=== PATIENT | female | born 1975 | race Caucasian/White ===

== ENCOUNTER 2021-07-13 20:00 | Emergency (ER) | payer MEDICARE, SELFPAY ==
[2021-07-13 20:01] VITALS: BP 160/103; PULSE 115; RESP 18; TEMP 36.6; O2SAT 95; BMI 41.8
--- NOTE | 2021-07-13 20:32 | US_ITS ---
INDICATION: Two right leg bruises/ pain EXAMINATION: Ultrasound US Venous Duplex LE Unilat / Limited TECHNIQUE: Morton scale, pulse wave, and color flow Doppler imaging was performed of the lower extremity venous system. The right greater saphenous, common femoral, femoral, and popliteal veins were interrogated. Proximal posterior tibial and peroneal veins also interrogated with grayscale imaging. COMPARISON: None. FINDINGS: There is normal compression, augmentation, and signal throughout the visualized deep lower extremity veins. Contralateral left common femoral vein is also normal with symmetric waveforms. Area of medial distal thigh and calf reported bruising shows no soft tissue fluid collection or appreciable subcutaneous edema. US/Venous Duplex Imag/Limited/Uni IMPRESSION: No sonographic evidence of deep venous thrombosis. Electronically Signed: Omar Díaz DO at 22:01 EDT Tel , Service support ,
--- NOTE | 2021-07-13 20:33 | EX.ED.DYSGE1 ---
HPI History of Present Illness Chief Complaint: Other, Pain/Inj Informant: patient Narrative Narrative: Presents with nontraumatic right inner thigh pain since yesterday. Reports pain shoot down her leg. Denies history of PE or DVT. No recent travel, surgeries, immobilizations. States today left upper pants noted bruising. She does not take anticoagulants. No chest pains or shortness of breath. Pain subsided however and only mild at this point. Denies history of similar in the past. No pain on the left side. Prior similar symptoms: No PFSH PFSH Medical History no medical history Home Medications NK 07/13/21 [History Last Taken Unknown] Allergy/AdvReac Type Severity Reaction Status Date / Time Iodinated Contrast Media Allergy Anaphylaxis Verified 07/13/21 20:03 [CONTRASTS] Penicillins Allergy Anaphylaxis Verified 07/13/21 20:03 Surgical History no surgical history Social History Smoking Status: Former smoker ROS ROS ED Constitutional Constitutional ED: Denies chills, fever(s) or sweats Eyes Eyes: Denies change in vision ENT ENT ED: Denies dysphagia or sore throat Cardiovascular Cardiovascular: Denies chest pain, leg edema, palpitations or racing heartbeat Respiratory/Chest Respiratory/Chest: Denies cough, dyspnea or dyspnea on exertion Gastrointestinal Gastrointestinal: Denies abdominal pain, diarrhea, nausea or vomiting Genitourinary Genitourinary ED: Denies dysuria, hematuria or urinary frequency Musculoskeletal Musculoskeletal: Reports other Details: Right leg pain ; Denies back pain, extremity pain or neck pain Integumentary Denies rash or wounds Neurologic Neurologic: Denies headache(s), paresthesias or weakness EXAM Physical Exam Const Vital Signs: 07/13/21 20:01 Temperature 97.8 F Temperature Source Temporal Pulse Rate 115 H Respiratory Rate 18 Blood Pressure 160/103 H Blood Pressure Mean 122 Pulse Ox 95 Oxygen Delivery Method Room Air Positive well nourished and well developed General Appearance ED: well developed and NAD HEENT Reports moist mucous membranes normocephalic and atraumatic Eyes PERRL, EOMs intact bilaterally and conjunctivae normal General Eye ED: Yes normal appearance of both eyes Neck no lymphadenopathy and supple General: Negative for tenderness Chest Wall Chest: Negative for tenderness Resp normal respiratory effort and normal air movement Effort and Inspection: symmetric chest movement; Negative for respiratory distress Cardio regular rate, regular rhythm and no murmurs Peripheral Pulses: pulses 2+ throughout GI normal to inspection, nondistended, normoactive bowel sounds and non-tender Palpation: Negative for guarding or rebound tenderness present Back/Spine no CVA tenderness and no thoracic nor lumbar tenderness Extremity Extremity Narrative: Right lower extremity: Tenderness to medial thigh with compact ecchymosis distal medial aspect. No indurations. No fluctuance. No erythema. No calf tenderness. Neurovascular intact distally. Left lower extremity: Nontender, neurovascular intact distally. General Extremety ED: Negative for edema or tenderness General Extremity: Negative for edema Neuro oriented x3 and no sensory deficits noted Sensorium / Orientation: awake and alert Skin no rashes or lesions noted and no wounds MDM MDM MDM Narrative Medical decision making narrative: Patient noted palm-sized contusion however is tender along the medial thigh. Ultrasound obtained negative for DVT. She declined Jose Luis wrap. She denies trauma. Discussed pain in this area and to use Tylenol Motrin as needed and monitoring symptoms. She was not happy with the testing and states she will go somewhere else for a second opinion. Discussed with her she is not any anticoagulation there is no clinical concerns for low platelets without any petechiae. This was relayed to the patient. All questions were answered. Discharge Plan Triage Chief Complaint: Other, Pain/Inj ED Provider: Kaleb Srinivasan Dx/Rx/DC Orders Clinical Impression: Contusion of right thigh, initial encounter Instructions: Bruises (Contusions) Prescriptions: No Action NK RF: 0 Primary Care Provider: Care Physician,No Primary Referrals: Ginger Kern MD [STAFF PHYSICIAN] - 1 Week Care Physician,No Primary [Primary Care Provider] - Activity Restrictions/Additional Instructions: Ultrasound of the right lower extremity today is negative for DVT. Disposition Disposition: Home, Self Care
[2021-07-13 21:30] VITALS: BP 153/84; PULSE 89; RESP 16; O2SAT 99
== END 2021-07-13 21:31 | disposition home or self-care (01) ==
PROVIDERS: Emergency Provider Emergency Medicine
DX: S70.11XA Contusion of right thigh, initial encounter (principal); X58.XXXA Exposure to other specified factors, initial encounter; Y93.9 Activity, unspecified; Y92.9 Unspecified place or not applicable; Z87.891 Personal history of nicotine dependence
CPT/HCPCS: 93971; 99282

== ENCOUNTER 2021-08-18 15:03 | Emergency (ER) | payer MEDICARE, MEDICAID, SELFPAY ==
[2021-08-18] VITALS (11 sets, daily range): BP systolic 111–158; BP diastolic 73–98; PULSE 86–140; RESP 14–25; TEMP 36.5–37.2; O2SAT 94–98; BMI 35.3
--- NOTE | 2021-08-18 15:53 | EKG12_ITS ---
Test Reason : CP Blood Pressure : / mmHG Vent. Rate : 137 BPM Atrial Rate : 129 BPM P-R Int : 000 ms QRS Dur : 044 ms QT Int : 350 ms P-R-T Axes : 000 240 000 degrees QTc Int : 528 ms Poor data quality, interpretation may be adversely affected Sinus tachycardia Low voltage QRS Anterolateral infarct , age undetermined Abnormal ECG Confirmed by LORI ASHLEY, KEERTHI ([id number]), avid editor TERRI EVANS ([id number]) on 08/23/2021 9:39:57 AM Referred By: VIJAYA Confirmed By:MARY SANDOVAL MD
--- NOTE | 2021-08-18 16:01 | EDS_ITS ---
HPI History of Present Illness Chief Complaint: Chest Pain Detail of Chief Complaint: Chest pain, shortness of breath, cough Informant: patient Onset/Context/Timing Onset: Days Context: Gradual Onset Current Severity: Moderate Maximum Severity: Moderate Narrative Narrative: Patient reports not feeling well for the past couple of days but today symptoms including cough, chest pressure, shortness of breath seem to be worse. She states her chest feels tight and she feels like she is wheezing. [facility] and they encouraged her to come in for evaluation. PFSH PFSH Medical History no medical history no medical history Home Medications azithromycin [Zithromax] 250 mg PO DAILY 4 Days #4 tab 08/18/21 [Rx Last Taken Unknown] dextromethorphan polistirex [Robitussin ER] 10 ml PO Q12H PRN #80 ml 08/18/21 [Rx Last Taken Unknown] Allergy/AdvReac Type Severity Reaction Status Date / Time Iodinated Contrast Media Allergy Anaphylaxis Verified 07/13/21 20:03 [CONTRASTS] Penicillins Allergy Anaphylaxis Verified 07/13/21 20:03 Surgical History Hx of cholecystectomy Hx of hysterectomy Social History Smoking Status: Former smoker ROS ROS ED Constitutional Constitutional ED: Reports chills, fever(s) and subjective Eyes Eyes: Denies change in vision ENT ENT ED: Denies sore throat Cardiovascular Cardiovascular: Reports chest pain Respiratory/Chest Respiratory/Chest: Reports cough and dyspnea; Denies sputum Gastrointestinal Gastrointestinal: Reports nausea and vomiting; Denies abdominal pain or diarrhea Genitourinary Genitourinary ED: Denies dysuria Musculoskeletal Musculoskeletal: Denies back pain Integumentary Denies rash Neurologic Neurologic: Reports weakness; Denies headache(s) Psychiatric Psychiatric: Denies anxiety or depression Allergic/Immunologic Allergic/Immunologic ED: Denies urticaria EXAM Physical Exam Const Vital Signs: 08/18/21 15:11 08/18/21 15:36 08/18/21 16:20 Temperature 97.7 F L 97.7 F L Temperature Source Temporal Temporal Pulse Rate 140 H 116 H 114 H Respiratory Rate 16 18 25 H Respiratory Effort Short of Breath Blood Pressure 135/76 H 135/76 H Blood Pressure Mean 95 95 Pulse Ox 98 97 94 Oxygen Delivery Method Room Air Room Air Room Air 08/18/21 16:21 08/18/21 17:02 08/18/21 18:00 Temperature 97.7 F L 97.7 F L 99 F Temperature Source Temporal Temporal Oral Pulse Rate 114 H 108 H 100 Respiratory Rate 25 H 15 18 Respiratory Effort Blood Pressure 135/76 H 130/98 H 121/74 H Blood Pressure Mean 95 108 89 Pulse Ox 94 95 96 Oxygen Delivery Method Room Air Room Air Room Air 08/18/21 19:00 08/18/21 20:34 08/18/21 21:07 Temperature 99 F Temperature Source Oral Pulse Rate 96 93 93 Respiratory Rate 15 17 21 H Respiratory Effort Blood Pressure 158/83 H 117/73 Blood Pressure Mean 108 87 Pulse Ox 96 94 96 Oxygen Delivery Method Room Air Room Air Room Air 08/18/21 22:03 Temperature Temperature Source Pulse Rate 86 Respiratory Rate 17 Respiratory Effort Blood Pressure 111/79 Blood Pressure Mean 89 Pulse Ox 98 Oxygen Delivery Method Room Air Positive well nourished and well developed General Appearance ED: well developed HEENT Reports moist mucous membranes Eyes PERRL and EOMs intact bilaterally Chest Wall inspection of chest normal and palpation of chest normal Resp Auscultation: diminished lung sounds Cardio Rate: tachycardic GI non-tender Auscultation: hypoactive bowel sounds Palpation: soft Extremity normal to inspection Neuro oriented x3 Sensorium / Orientation: alert Psych mental status grossly normal Skin no rashes or lesions noted MDM MDM MDM Narrative Medical decision making narrative: D, chest x-ray, lab work obtained. Rapid Covid obtained. Lab Data Attestation: I reviewed the patient's lab results. Labs: Laboratory Results - last 24 hr 08/18/21 08/18/21 08/18/21 16:15 17:10 17:10 WBC 5.1 RBC 4.57 Hgb 12.5 Hct 40.0 MCV 87.5 MCH 27.4 MCHC 31.3 L RDW Std Deviation 44.9 H RDW Coeff of Raisa 13.9 Plt Count 260 MPV 10.6 Immature Gran % (Auto) 0.200 Neut % (Auto) 62.6 Lymph % (Auto) 23.3 Borden % (Auto) 10.7 H Eos % (Auto) 2.4 Baso % (Auto) 0.8 Absolute Neuts (auto) 3.2 Absolute Lymphs (auto) 1.18 Nucleated RBC % 0 Sodium 141 Potassium 4.0 Chloride 104 Carbon Dioxide 29.0 Anion Gap 8 BUN 16 Creatinine 1.34 H Estim Creat Clear Calc 49.63 Est GFR (MDRD) Af Amer 55 L Est GFR (MDRD) Non-Af 45 L BUN/Creatinine Ratio 11.9 Glucose 114 H Lactic Acid 1.4 Calcium 9.8 Troponin I High Sens 28 08/18/21 19:15 WBC RBC Hgb Hct MCV MCH MCHC RDW Std Deviation RDW Coeff of Raisa Plt Count MPV Immature Gran % (Auto) Neut % (Auto) Lymph % (Auto) Borden % (Auto) Eos % (Auto) Baso % (Auto) Absolute Neuts (auto) Absolute Lymphs (auto) Nucleated RBC % Sodium Potassium Chloride Carbon Dioxide Anion Gap BUN Creatinine Estim Creat Clear Calc Est GFR (MDRD) Af Amer Est GFR (MDRD) Non-Af BUN/Creatinine Ratio Glucose Lactic Acid Calcium Troponin I High Sens 28 Radiography Chest X-Ray - ED: 1 View, Read by ED Physician, Normal, Heart, Lungs and Mediastinum Diagnostic Testing: Clinical Impression(s) from Imaging Studies Chest X-Ray 08/18/21 16:30 IMPRESSION: Normal x-ray examination of the chest. Electronically Signed: Vinicius Armenta DO at 16:48 EST Tel [phone], Service support , EKG Initial EKG: Attestation: I personally reviewed and interpreted this EKG as follows: Comments: Underlying tremor artifact giving false impression of A. fib. Patient is actually sinus rhythm with a ventricular rate of 137. No acute ST change. Baseline motion artifact noted. Treatment and Re-Evaluation Comments:: Patient was given Robitussin-AC for cough. Blood work unremarkable with initial troponin of 28. 2-hour repeat troponin unchanged. Chest x-ray reveals no focal infiltrate per my interpretation as well as radiologist interpretation. Because [facility] the [facility] Cov[facility] PCR is obtained after rapid returns negative. PCR is also negative at this time. Patient be discharged with a prescription for Zithromax as well as Robitussin. Discharge Plan Triage Chief Complaint: Chest Pain ED Provider: Amparo Guzman Dx/Rx/DC Orders Clinical Impression: Bronchitis Instructions: Acute Bronchitis Prescriptions: New azithromycin [Zithromax] 250 mg tablet 250 mg PO DAILY 4 Days Qty: 4 RF: 0 dextromethorphan polistirex [Robitussin ER] 30 mg/5 mL suspension,extended rel 12 hr 10 ml PO Q12H PRN (Reason: cough) Qty: 80 RF: 0 Primary Care Provider: Care Physician,No Primary Referrals: Catrina Walker, [STAFF PHYSICIAN] - As Needed Care Physician,No Primary [Primary Care Provider] - Disposition Disposition: Home, Self Care
--- NOTE | 2021-08-18 16:30 | RAD_ITS ---
STUDY: X-RAY CHEST REASON FOR EXAM: Female, 45 years old. Cough. Chest pain. Shortness of breath. TECHNIQUE: Single AP portable view of the chest. COMPARISON: None. FINDINGS: The lungs are clear and expanded. There is no demonstrated pleural abnormality. Normal size heart. Normal mediastinum and eliazar. Normal visualized pulmonary arteries. Normal visualized aortic arch and descending thoracic aorta. Normal visualized thoracic spine. Normal visualized ribs, clavicles, and shoulders. There is no demonstrated abnormality of the visualized soft tissue structures of the upper abdomen. RAD/Chest 1 View (Portable) IMPRESSION: Normal x-ray examination of the chest. Electronically Signed: Vinicius Armenta DO at 16:48 EST Tel [phone], Service support ,
--- NOTE | 2021-08-18 16:36 | ED.RN ---
3 nurses attempted to obtain IV with no success. Blood work obtained but hemolyzed per lab, lab to come up and redraw blood. Dr. Guzman notified, Zuhair CARR ordered.
[2021-08-18] MEDS: Ondansetron ODT 4 MG Tablet PO (16:41)
[2021-08-18] MEDS: guaiFENesin/Codeine 5 ML UDC 10 ML PO (16:42)
[2021-08-18 16:52] LABS: Lactic Acid 1.4 mmol/L (0.4-1.9)
[2021-08-18 17:21] LABS: Absolute Lymphocyte Count 1.18 X10^3/uL (0.83-4.51); Absolute Neutrophil Count 3.2 X10^3/uL (2.0-7.7); Basophil# 0.04 X10^3/uL; Basophil% 0.8 % (0-1); Eosinophil# 0.12 X10^3/uL; Eosinophils% 2.4 % (0-5); Hemoglobin 12.5 g/dL (12.0-15.0); Lymphocyte # 1.18 X10^3/ul (0.83-4.51); Lymphocyte % 23.3 % (19-41); Mean Corp Hgb Conc 31.3 g/dL (32-36); Mean Corpuscular Hgb 27.4 pg (27.0-32.0); Mean Corpuscular Volume 87.5 fL (81-99); Mean Platelet Vol. 10.6 fl (6.2-12.0); Monocyte# 0.54 X10^3/uL; Monocyte% 10.7 % (0-10); NRBC Flagged by Analyzer 0 % (0-5); Neutrophil # 3.18 X10^3/uL (2.7-7.7); Neutrophil % 62.6 % (47-70); Platelet Count 260 K/mm3 (150-450); RBC Distribution Width CV 13.9 % (11.6-14.6); RBC Distribution Width SD 44.9 fl (35.1-43.9); Red Blood Count 4.57 M/mm3 (4.2-5.4); White Blood Count 5.1 K/mm3 (4.4-11.0)
[2021-08-18 17:39] LABS: Anion Gap 8 (5-15); BUN 16 mg/dL (7-18); BUN/Creat Ratio 11.9 RATIO (10-20); Calcium,Total 9.8 mg/dL (8.5-10.1); Chloride 104 mmol/L (98-107); Creatinine, Serum 1.34 mg/dL (0.55-1.02); EST Glomerular Filtration Rate 45 mL/min (>60); Est Glom Filt Rate - Afr Amer 55 mL/min (>60); Estimated Creatinine Clearance 49.63 ml/min; Glucose 114 mg/dL (74-106); Sodium Level 141 mmol/L (136-145); Troponin-I HS 28 pg/mL (3.0-54.0)
[2021-08-18 19:56] LABS: Troponin-I HS 28 pg/mL (3.0-54.0)
[2021-08-18] MEDS: guaiFENesin/Codeine 5 ML UDC PO (22:04)
[2021-08-18] MEDS: proMETHazine 25 MG Tablet PO (22:04)
[2021-08-18] MEDS: Azithromycin 250 MG Tablet 500 MG PO (22:54)
== END 2021-08-18 22:55 | disposition home or self-care (01) ==
PROVIDERS: Emergency Provider Emergency Medicine
DX: J40 Bronchitis, not specified as acute or chronic (principal); Z87.891 Personal history of nicotine dependence; Z59.01 Sheltered homelessness
CPT/HCPCS: 71045; 80048; 83605; 84484; 85025; 87426; 87633; 87635; 93005; 99285; U0005; A4216; U0003